=== PATIENT | female | born 1980 | race Caucasian/White ===

== ENCOUNTER 2020-01-19 05:47 | Day surgery (SDC) | payer BC ==
[2020-01-17 10:18] LABS: BASOPHILS % (AUTO) 0.9 % (0.0-2.0); EOSINOPHILS % (AUTO) 5.2 % (0.0-3.0); HEMATOCRIT 39.8 % (37.0-47.0); HEMOGLOBIN 12.7 G/DL (12.0-16.0); LYMPHOCYTES % (AUTO) 34.9 % (20.0-45.0); MEAN CORPUSCULAR VOLUME 85 FL (80-99); MONOCYTES % (AUTO) 13.2 % (1.0-10.0); NEUTROPHILS % (AUTO) 45.8 % (45.0-75.0); PLATELET COUNT 196 K/UL (150-450); RED CELL DISTRIBUTION WIDTH 13.1 % (11.6-14.8); WHITE BLOOD COUNT 3.5 K/UL (4.8-10.8)
[2020-01-17 10:30] LABS: ANION GAP 7 mmol/L (5-15); BLOOD UREA NITROGEN 15 mg/dL (7-18); CALCIUM 9.2 MG/DL (8.5-10.1); CARBON DIOXIDE 30 MMOL/L (21-32); CHLORIDE 104 MMOL/L (98-107); POTASSIUM 4.3 MMOL/L (3.5-5.1); SODIUM 141 MMOL/L (136-145)
[2020-01-17 10:46] LABS: INR 1.1 (0.9-1.1)
--- NOTE | 2020-01-18 23:15 | History and Physical Report ---
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 PAST MEDICAL HISTORY: Invasive breast cancer. PAST SURGICAL HISTORY: x3, nipple sparing bilateral mastectomies, and breast reconstruction. She also had bilateral salpingectomies with her last . ALLERGIES: None. MEDICATIONS: Tamoxifen 20 mg daily. SOCIAL HISTORY: The patient does not drink or smoke. She lives with her and 3 kids. FAMILY HISTORY: Significant for mom with ovarian cancer and also BRCA1 positive. PHYSICAL EXAM: VITAL SIGNS: Weight 134 pounds, height 5 feet 5 inches, blood pressure 120/80, temperature 97.8, and respiratory rate 18. Young, thin female in no acute distress. HEAD AND NECK: Pupils are equal and reactive to light. No goiter. LUNGS: Clear to auscultation bilaterally. CARDIAC: Regular rate and rhythm. BREASTS: Status post recent reconstructive surgery. Nontender. Incisions well healed. ABDOMEN: Soft, nondistended, and nontender. Possibly small umbilical hernia. Also, a scar in the lower abdomen well healed. PRACTICAL NURSING INSTRUCTOR: Bimanual exam significant for normal-size uterus and slight fullness of bilateral ovaries.Cervix wnl DIAGNOSTIC DATA: On ultrasound, bilateral follicular cysts were seen as well as EEC of 9 mm. ASSESSMENT: A 39-year-old, G3, P3, with history of invasive breast cancer and BRCA1 positive family history of ovarian cancer status post bilateral salpingectomy, now presents for prophylactic oophorectomies. PLAN: Plan is to do bilateral laparoscopic oophorectomies, hysteroscopy, and sampling of the endometrium. Kaylen Alves M.D. DR: SHIVA JOB#: [id number] CC: CURT
[2020-01-19] VITALS (11 sets, daily range): BP systolic 109–142; BP diastolic 79–89
[~2020-01-19] VITALS: Ht 170.2 cm; Wt 60.8 kg
[~2020-01-19 05:47] MED LIST: TAMOXIFEN CITRA10 MG ORAL
[2020-01-19] MEDS ORDERED: Ropivacaine 5mg/ml Vial 20ml INJ ONE (06:58)
[2020-01-19] MEDS ORDERED: ceFAZolin sod 1 GM in NS 55 ML IVPB SCH (07:00)
[2020-01-19] MEDS ORDERED: LR 1000ml 1,000 ML IVLG SCH (07:08)
--- NOTE | 2020-01-19 07:13 | Anethesia Preoperative Eval ---
Anesthesia Pre-op PMH/ROS General Date of Evaluation: Jan 19, 2020 Time of Evaluation: 07:36 Anesthesiologist: Kevyn ASA Score: ASA 3 Mallampati Score Class I : Soft palate, uvula, fauces, pillars visible Class II: Soft palate, uvula, fauces visible Class III: Soft palate, base of uvula visible Class IV: Only hard plate visible Mallampati Classification: Class I Surgeon: Long Diagnosis: Abd Pain Surgical Procedure: Laparoscopic Bilateral Oophorectomies, Hysteroscopy Anesthesia History: none Family History: no anesthesia problems Allergies: Coded Allergies: FILGRASTIM (Verified Adverse Reaction, Severe, high fever, 01/18/20) Medications: see eMAR Patient NPO?: Yes Past Medical History Hematology/Immune: Reports: other - Breast CA PSxH Narrative: Bilateral Mastectomies Anesthesia Pre-op Phys. Exam Physician Exam Last Vital Signs Date Time Temp Pulse Resp B/P (MAP) Pulse Ox O2 Delivery O2 Flow Rate FiO2 01/19/20 06:31 97.8 83 18 109/79 100 Room Air Constitutional: NAD Neurologic: CN 2-12 intact Cardiovascular: RRR Respiratory: CTA Gastrointestinal: S/NT/ND Airway Exam Mallampati Score: Class I MO: full ROM: full Teeth: missing, intact Anesthesia Pre-op A/P Labs Urine Test Test 01/19/20 05:55 Urine HCG, Qualitative Negative (NEGATIVE) Risk Assessment & Plan Assessment: ASA 3 Plan: GA, SED, GlideScope Status Change Before Surgery: No Pre-Antibiotics Dru Gram Ancef IV Given Within 1 Hr of Incision: Yes Time Given: 08:01 Flaquito Bagley MD Jan 19, 2020 07:13
--- NOTE | 2020-01-19 07:14 | Immediate Post-Op Evaluation ---
Immediate Post-Op Evalulation Immediate Post-Op Evalulation Procedure: Laparoscopic Bilateral Oophorectomies, Hysteroscopy Date of Evaluation: Jan 19, 2020 Time of Evaluation: 10:14 IV Fluids: 1500 LR Blood Products: 0 Estimated Blood Loss: 800 Urinary Output: 100 Blood Pressure Systolic: 122 Blood Pressure Diastolic: 82 Pulse Rate: 88 Respiratory Rate: 16 O2 Sat by Pulse Oximetry: 100 Temperature (Fahrenheit): 97.6 Pain Score (1-10): 2 Nausea: No Vomiting: No Complications 0 Patient Status: awake, reacts, patent, extubated, none Hydration Status: adequate Dru Gram Ancef IV Given Within 1 Hr of Incision: Yes Time Given: 08:01 Flaquito Bagley MD Jan 19, 2020 07:14
[2020-01-19] MEDS ORDERED: Hydromorphone 0.5mg/0.5ml inj IVP PRN (07:15)
[2020-01-19] MEDS ORDERED: ProvayBlue 5mg/ml 10ml amp INJ ONE (07:15)
[2020-01-19] MEDS ORDERED: Acetaminophen (Non formulary) 100 ML IV ONE (07:15)
[2020-01-19] MEDS ORDERED: Ketorolac 30mg Inj IV PRN ×2 (07:15)
[2020-01-19] MEDS ORDERED: HYDROcodone/Acetamin 5/325 tab ORAL PRN ×2 (07:15→07:45)
[2020-01-19] MEDS ORDERED: oxyCODONE HCL/Acetaminophen 5/325mg ORAL PRN (07:15)
[2020-01-19] MEDS ORDERED: DiphenhydrAMINE 50mg/ml Inj IVP PRN ×2 (07:15→07:45)
[2020-01-19] MEDS ORDERED: Midazolam 2mg/2ml Inj IVP PRN (07:15)
[2020-01-19] MEDS ORDERED: Meperidine 25mg/0.5ml Inj (FOR RIGORS ONLY) IV PRN (07:15)
[2020-01-19] MEDS ORDERED: LORazepam Inj 2mg/ml 1ml IV PRN (07:15)
[2020-01-19] MEDS ORDERED: HYDROcodone/Acetamin 7.5/325 tab ORAL PRN (07:15)
[2020-01-19] MEDS ORDERED: Atropine Sulfate 0.4mg/ml inj IVP PRN (07:15)
[2020-01-19] MEDS ORDERED: Labetalol 5mg/ml 20ml vial IV PRN (07:15)
[2020-01-19] MEDS ORDERED: fentaNYL 100 mcg/2 mL IV PRN (07:15)
[2020-01-19] MEDS ORDERED: Metoclopramide 10mg/2ml Inj IVP PRN ×2 (07:15→07:45)
[2020-01-19] MEDS ORDERED: Sodium Chloride 10ml vial INJ ONE (07:16)
[2020-01-19] MEDS ORDERED: Lidocaine 1% MPF 10mg/ml 5ml ONE (07:16)
[2020-01-19] MEDS ORDERED: fentaNYL 100 mcg/2 mL IV ONE ×2 (07:17→09:31)
[2020-01-19] MEDS ORDERED: Lidocaine 1% Plain 30 ml INJ ONE (07:24)
[2020-01-19] MEDS ORDERED: Neostigmine 1mg/ml 10ml Inj ONE (07:30)
[2020-01-19] MEDS ORDERED: Rocuronium Bromide 50mg/5ml Inj IV ONE (07:30)
[2020-01-19] MEDS ORDERED: LR 1000ml ONE (07:30)
[2020-01-19] MEDS ORDERED: propofoL 1,000mg/100ml IV ONE (07:30)
[2020-01-19] MEDS ORDERED: NS Irrig 1000ml ONE (07:30)
[2020-01-19] MEDS ORDERED: Sterile Water Irrig 1000ml IRRIG ONE (07:30)
--- NOTE | 2020-01-19 07:38 | Pre-Procedure Note/Attestation ---
Pre-Procedure Note/Attestation Complete Prior to Procedure Planned Procedure: bilateral Procedure Narrative: Laparoscopic bilateral oopherectomies Indications for Procedure Pre-Operative Diagnosis: BRCA 1/ personal history of breast CA/ maternal history of ovarian CA Attestation I attest that I discussed the nature of the procedure; its benefits; risks and complications; and alternatives (and the risks and benefits of such alternatives ), prior to the procedure, with the patient (or the patient's legal member services representative). I attest that, if there was a reasonable possibility of needing a blood transfusion, the patient (or the patient's legal member services representative) was given the [facility] standardized written summary, pursuant to the Shashank Flores Blood Safety Act ([place] Health and Safety Code # 1645, as amended). I attest that I re-evaluated the patient just prior to the surgery and that there has been no change in the patient's H&P, except as documented below: Kaylen Alves MD Jan 19, 2020 07:38
[2020-01-19] MEDS ORDERED: D5 1/2NS 1,000 ML IV SCH (07:45)
[2020-01-19] MEDS ORDERED: Tylenol #3 tab (300mg/30mg) ORAL PRN (07:45)
[2020-01-19] MEDS ORDERED: HYDROmorphone 1mg/ml Carpuject SUBQ PRN (07:45)
[2020-01-19] MEDS ORDERED: NS Irrig 1000ml IRRIG ONE (08:32)
[2020-01-19] MEDS ORDERED: Glycopyrrolate 0.2mg/ml 1ml Vial ONE (09:14)
[2020-01-19] MEDS ORDERED: Naloxone 0.4mg/ml Inj ONE (09:22)
[2020-01-19] MEDS ORDERED: Ketorolac 30mg Inj ONE (09:41)
--- NOTE | 2020-01-22 22:00 | Brief Operative Note ---
Immediate Post Operative Note Operative Note Pre-op Diagnosis: BRCA 1/ personal history of breast CA/ maternal history of ovarian CA Procedure: laparoscopic bilateral oopherectomies, lysis of adhesions, hysteroscopy dilation and curettage Post-op Diagnosis: same and follicular cysts Surgeon: viri kahn Assembler [employer]al Parts: liz woodruff Anesthesiologist: Linda Anesthesia: general Specimen: yes Complications: none Condition: stable Fluids: crystakkiud Estimated Blood Loss: minimal Drains: none Implant(s) used?: No Viri Kahn MD Jan 22, 2020 21:59
--- NOTE | 2020-01-22 23:00 | Operative Note - Dictated ---
DATE OF OPERATION: 01/19/2020 PREOPERATIVE DIAGNOSES: BRCA1 positive, history of invasive breast cancer diagnosed within this year, desires prophylactic oophorectomy. POSTOPERATIVE DIAGNOSES: BRCA1 positive, history of invasive breast cancer diagnosed within this year, desires prophylactic oophorectomy. PROCEDURE: Hysteroscopy, D and C, bilateral laparoscopic oophorectomy, lysis of adhesions. SURGEON: Kaylen Alves MD. CENSUS ENUMERATOR: Soledad Pham MD. ANESTHESIOLOGIST: Flaquito Bagley MD. ANESTHESIA: General endotracheal. ESTIMATED BLOOD LOSS: Minimal. FINDINGS: Bilateral ovaries with follicular cysts. PROCEDURE IN DETAIL: After ensuring consent, patient was taken to the operating room where general anesthesia was induced. Patient was sterilely prepped and draped. Weighted speculum was placed in the vagina. Cervix was dilated to an 8 Hegar dilators. Hysteroscope was placed inside the uterine cavity. Uterine cavity was distended with normal saline. Uterine cavity was completely normal. Curettage was performed. Next, HUMI-type manipulator was placed inside the uterus. Small incision was made inside the umbilicus. A Veress needle was placed inside the peritoneal cavity. Peritoneal cavity was distended with CO2 gas. A 5 mm trocar was placed inside the umbilicus and intraperitoneal placement was confirmed with a camera. Next, after infiltration, a left lateral 5 mm trocar was placed as well as a suprapubic 10 mm trocar. Next, right adnexa was grasped and first ureter was identified, then infundibulopelvic ligament was identified, skeletonized, cauterized, and transected. Next, dissection was continued along side the broad ligament until the uteroovarian was reached, which was likewise cauterized and transected. Ovary was completely transected. An endobag was placed inside the 10 mm trocar. The right ovary was placed inside of it and removed. Next, attention was turned to the left adnexa. Likewise, ureter was identified. Infundibulopelvic was identified. There were some adhesions between the left ovary and pelvic sidewall, which were lysed. After the adhesions were lysed, peritoneum was opened and the infundibulopelvic was skeletonized, grasped, cauterized, and transected. The dissection was continued along side the broad. Next, uteroovarian was cauterized, grasped, and transected. The left adnexa was completely removed and placed inside the endobag and removed from the body. Next, pelvis was irrigated. Excellent hemostasis was assured with bipolar. A 5 mm trocar was removed under direct visualization. A 12 mm trocar was removed under direct visualization and an intraumbilical trocar was likewise removed under visualization. However, there was some bleeding observed from the intraumbilical trocar site, which did not subside with pressure and even with use of the camera, the exact location was not seen, however, it was in the subcutaneous area. Next, 0 Vicryl suture was placed inside the umbilicus and using the suprapubic port, camera was inserted, and no bleeding was visualized at this point. Next, skin was closed with Steri-Strips. The fascia of the suprapubic port was closed with 0 Vicryl and the left lateral incision was closed with 4-0 Monocryl. At the end of the procedure, all instruments and lap counts were correct x2. HUMI was removed and Rodriguez was removed and patient was taken to the recovery area, extubated, and in an stable condition. Please note that Steri-Strips were placed over all the port incisions. Kaylen Alves M.D. DR: WOLF JOB#: [id number] CC:
== END 2020-01-19 13:40 | disposition home or self-care (01) ==
LOC: SUR 05:47
DX: N83.02 Follicular cyst of left ovary (principal); N83.01 Follicular cyst of right ovary; Z15.01 Genetic susceptibility to malignant neoplasm of breast; Z85.3 Personal history of malignant neoplasm of breast; Z90.13 Acquired absence of bilateral breasts and nipples
CPT/HCPCS: 36415; 58558; 58661; 80048; 81025; 85025; 85610; 85730; 94003; J0131; J0690; J1100; J1885; J2001; J2250; J2310; J2405; J2704; J2710; J2795; J3010; J7120; U0002; 94150